=== PATIENT | female | born 1995 | race African-American/Black ===

== ENCOUNTER 2016-11-15 23:30 | Emergency (ER) | payer OTHER ==
--- NOTE | ~2016-11-15 | CR72 ---
[facility] A Service of [facility] & [facility] RADIOLOGY TEXT RESULTS PATIENT: LEYDA MOORE LOCATION: [facility] : [birth year] UNIT #: [id number] AGE: [address]: Mark Patterson MD SEX: F ORDER DR: [id number] [facility] [address] [place], [place] [address] [id number] E MR#: [id number] Acc #: [id number] NAME: LEYDA MOORE : 1995 SEX: F STUDY DATE/TIME: 11/15/2016 23:11 UNIT: [facility] ROOM: STUDY DESCRIPTION: CR Chest Single View Portable Attending Physician: Leonardo Patterson M.D. Ordering Physician: Bryan Sauer M.D. Primary Care Physician: Primary Care Physician No MEDICAL IMAGING REPORT This report is preliminary unless electronic signature is present EXAM Portable chest 11/15/2016 HISTORY Chest pain under left breast for 1 year increasingly worse. FINDINGS A single AP portable view of the chest shows both lungs to be clear. The heart is normal in size. The mediastinal contour is normal. No significant bone abnormalities are seen. IMPRESSION Normal portable chest. Dictated by... Elia House M.D. THIS IS AN ELECTRONICALLY VERIFIED REPORT Elia House M.D. at 11/16/2016 2:19 PM TRELL/paolo TD: 11/16/2016 07:09 JOB #: [id number] MEDICAL IMAGING REPORT COPY
--- NOTE | ~2016-11-15 | EKG ---
PATIENT: LEYDA MOORE UNIT #: [id number] Ventricular Rate: 100 BPM Atrial Rate: 100 BPM P-R Interval: 146 ms QRS Duration: 80 ms Q-T Interval: 332 ms QTC Calculation(Bezet): 428 ms P [place]: 41 degrees Calculated R [place]: 44 degrees Calculated T [place]: 31 degrees Diagnosis Line: Normal sinus rhythm Diagnosis Line: Left atrial enlargement Diagnosis Line: Borderline ECG Diagnosis Line: No previous ECGs available Diagnosis Line: Confirmed by IDA FERGUSON MD ([id number]) on 11/16/2016 Diagnosis Line: 5:43:00 PM INTERPRETING MD: MARTY TAI
== END 2016-11-16 01:36 | disposition home or self-care (01) ==
LOC: CED 23:30
DX: R07.89 Other chest pain (principal)
CPT/HCPCS: 71010; 84703; 93005; 99284